=== PATIENT | male | born 1960 | race Caucasian/White ===

== ENCOUNTER 2022-08-11 08:14 | Inpatient (IN) | payer MEDICAID ==
[~2022-08-11] VITALS: Ht 180.3 cm; Wt 111.2 kg
[2022-08-11] VITALS (7 sets, daily range): BP systolic 118–183; BP diastolic 74–85
[~2022-08-11 08:14] MED LIST: ASPI-989 PO; ATOR20TA86 PO; GLIP10TA9 PO; LOSA-381 PO; METF-1185 PO; METO-408 PO; NITR0.4T50 SL; SODIUM CHLORIDE 0.9% 1,000 ML IV ONE
[2022-08-11 09:07] LABS: BASOPHILS % (AUTO) 0.4 % (0.0-2.0); EOSINOPHILS % (AUTO) 1.6 % (1.0-6.0); HEMOGLOBIN 15.5 g/dL (13.5-17.5); LYMPHOCYTES # (AUTO) 1.4 K/uL (1.0-4.8); LYMPHOCYTES % (AUTO) 21.8 % (22.0-44.0); MEAN CORPUSCULAR HEMOGLOBIN 31.5 pg (26.0-34.0); MEAN CORPUSCULAR HGB CONC 34.3 G/dL (31.0-37.0); MEAN CORPUSCULAR VOLUME 92 fL (80-100); MONOCYTES # (AUTO) 0.4 K/uL (0.1-1.0); MONOCYTES % (AUTO) 6.6 % (2.0-9.0); NEUTROPHILS # (AUTO) 4.4 K/uL (1.8-7.7); NEUTROPHILS % (AUTO) 69.6 % (40.0-70.0); PLATELET COUNT (AUTO) 172 K/uL (150-450); RED CELL DISTRIBUTION WIDTH 12.3 % (11.5-14.5)
[2022-08-11 09:17] LABS: ANION GAP 6 mmol/L (8-16); CARBON DIOXIDE 29 mmol/L (22-29); CHLORIDE 102 mmol/L (98-107); CREATININE 1.13 mg/dL (0.60-1.30); GLUCOSE,RANDOM 204 mg/dL (70-110); POTASSIUM 4.4 mmol/L (3.5-5.1); SODIUM SERUM 137 mmol/L (136-145); UREA NITROGEN, BLOOD 13 mg/dL (7-18)
[2022-08-11 09:18] LABS: GLOMERULAR FILTR. RATE CALC > 60 mL/min (>60)
[2022-08-11 09:20] LABS: PROTHROMBIN TIME 10.9 SEC (9.4-11.6)
[2022-08-11 09:24] LABS: ALANINE AMINOTRANSFERASE 39 U/L (12-78); ALBUMIN 3.8 g/dL (3.4-5.0); ALKALINE PHOSPHATASE 53 U/L (46-116); ASPARTATE AMINOTRANSFERASE 18 U/L (15-37); BILIRUBIN,TOTAL 0.6 mg/dL (0.1-1.0); TOTAL PROTEIN, SERUM 7.2 g/dL (6.4-8.2)
[2022-08-11 09:25] LABS: COVID AG,FIA SOURCE NASAL SWAB
[2022-08-11 09:55] LABS: GLUCOMETER DEV NAME(LOC) SDS.; GLUCOSE,POINT OF CARE 212 MG/DL (70-110)
[2022-08-11] MEDS ORDERED: SODIUM BICARBONATE 50 MEQ/50 ML VIAL ONE (13:07)
[2022-08-11] MEDS ORDERED: LIDOCAINE/PF 1% 30 ML VIAL ONE (13:07)
[2022-08-11] MEDS ORDERED: VERAPAMIL HCL 2.5 MG/ML 2 ML VIAL ONE (13:07)
[2022-08-11] MEDS ORDERED: IOHEXOL 300 MG/ML 50 ML VIAL ONE (13:07)
[2022-08-11] MEDS ORDERED: IOHEXOL 300 MG/ML 100 ML VIAL ONE ×2 (13:08→14:26)
[2022-08-11] MEDS ORDERED: HEPARIN SODIUM 1000 UNITS/NS 1,000 ML ONE (13:08)
[2022-08-11] MEDS ORDERED: LIDOCAINE 1% 30 ML/SOD BICARB 8.4% 4 ML SQ ONE (13:45)
[2022-08-11] MEDS ORDERED: HEPARIN SODIUM 1000 UNITS/NS 1,000 ML IARTER ONE (13:45)
[2022-08-11] MEDS ORDERED: IOHEXOL 300 MG/ML 100 ML VIAL ICOR ONE (13:45)
[2022-08-11] MEDS ORDERED: FentaNYL CITRATE PF 100 MCG/2 ML VIAL IVP ONE ×2 (13:45→14:45)
[2022-08-11] MEDS ORDERED: MIDAZOLAM HCL 2 MG/2 ML VIAL IVP ONE ×2 (13:45→14:45)
[2022-08-11] MEDS ORDERED: FentaNYL CITRATE PF 100 MCG/2 ML VIAL ONE (13:47)
[2022-08-11] MEDS ORDERED: MIDAZOLAM HCL 2 MG/2 ML VIAL ONE ×2 (13:48→14:33)
[2022-08-11] MEDS ORDERED: HEPARIN SODIUM,PORCINE 1,000 UNITS/ML 10 ML VIAL IARTER ONE ×2 (14:00→14:15)
[2022-08-11] MEDS ORDERED: VERAPAMIL HCL 2.5 MG/ML 2 ML VIAL IARTER ONE (14:15)
[2022-08-11] MEDS ORDERED: NITROGLYCERIN/D5W 50 MG/250 ML IV BOTTLE IARTER ONE (14:15)
[2022-08-11] MEDS ORDERED: NITROGLYCERIN/D5W 50 MG/250 ML IV BOTTLE ICOR ONE (15:00)
[2022-08-11] MEDS ORDERED: CLOPIDOGREL BISULFATE 300 MG TABLET ONE (15:09)
[2022-08-11] MEDS ORDERED: SODIUM CHLORIDE 0.9% 1,000 ML IV ONE (15:15)
[2022-08-11] MEDS ORDERED: DEXTROSE 50%-WATER 25 GM/50 ML SYRINGE IVP PRN (15:15)
[2022-08-11] MEDS ORDERED: CLOPIDOGREL BISULFATE 300 MG TABLET PO ONE (15:15)
[2022-08-11] MEDS ORDERED: HYDROmorphone HCL 2 MG/ML SYRINGE IVP PRN (15:15)
[2022-08-11] MEDS ORDERED: GABAPENTIN 300 MG CAPSULE PO PRN (15:15)
[2022-08-11] MEDS ORDERED: ACETAMINOPHEN 500 MG TABLET PO PRN (15:15)
[2022-08-11] MEDS ORDERED: ZOLPIDEM TARTRATE 10 MG TABLET PO PRN (15:30)
[2022-08-11] MEDS: INSULIN LISPRO 100 UNITS/ML SQ PRN ×2 (18:19→20:47)
[2022-08-12] VITALS (9 sets, daily range): BP systolic 106–136; BP diastolic 64–84
[2022-08-12] MEDS ORDERED: SODIUM CHLORIDE 0.9% 500 ML IV ONE (04:30)
[2022-08-12] MEDS: HYDROCODONE/ACETAMINOPHEN 5-325 MG TABLET PO PRN ×3 (04:30→21:32)
[2022-08-12] MEDS: ATORVASTATIN CALCIUM 20 MG TABLET PO SCH (05:49)
[2022-08-12] MEDS: INSULIN LISPRO 100 UNITS/ML SQ PRN ×4 (05:55→20:27)
[2022-08-12 06:12] LABS: BASOPHILS % (AUTO) 0.3 % (0.0-2.0); EOSINOPHILS % (AUTO) 1.8 % (1.0-6.0); HEMATOCRIT 40.5 % (41-53); HEMOGLOBIN 14.1 g/dL (13.5-17.5); LYMPHOCYTES # (AUTO) 1.6 K/uL (1.0-4.8); LYMPHOCYTES % (AUTO) 23.7 % (22.0-44.0); MEAN CORPUSCULAR HEMOGLOBIN 31.8 pg (26.0-34.0); MEAN CORPUSCULAR HGB CONC 34.8 G/dL (31.0-37.0); MEAN CORPUSCULAR VOLUME 92 fL (80-100); MONOCYTES # (AUTO) 0.5 K/uL (0.1-1.0); MONOCYTES % (AUTO) 7.7 % (2.0-9.0); NEUTROPHILS # (AUTO) 4.4 K/uL (1.8-7.7); NEUTROPHILS % (AUTO) 66.5 % (40.0-70.0); PLATELET COUNT (AUTO) 153 K/uL (150-450); RED BLOOD CELL COUNT(AUTO) 4.43 MIL/uL (4.50-5.90); RED CELL DISTRIBUTION WIDTH 12.5 % (11.5-14.5)
[2022-08-12 06:26] LABS: HEMOGLOBIN A1C 7.5 % (3.8-5.6)
[2022-08-12] MEDS ORDERED: DIAZEPAM 5 MG TABLET PO ONE (06:30)
[2022-08-12] MEDS ORDERED: DiphenhydrAMINE HCL 50 MG CAPSULE PO ONE (06:30)
[2022-08-12 06:51] LABS: GLUCOMETER DEV NAME(LOC) 5S.2B; GLUCOSE,POINT OF CARE 151 MG/DL (70-110)
[2022-08-12 06:55] LABS: ANION GAP 7 mmol/L (8-16); CALCIUM, TOTAL 8.6 mg/dL (8.8-10.5); CARBON DIOXIDE 26 mmol/L (22-29); CHLORIDE 104 mmol/L (98-107); CREATINE KINASE, TOTAL ONLY 86 U/L (39-308); CREATININE 0.96 mg/dL (0.60-1.30); GLUCOSE,RANDOM 167 mg/dL (70-110); POTASSIUM 3.9 mmol/L (3.5-5.1); SODIUM SERUM 137 mmol/L (136-145); UREA NITROGEN, BLOOD 11 mg/dL (7-18)
[2022-08-12 07:00] LABS: GLOMERULAR FILTR. RATE CALC > 60 mL/min (>60)
[2022-08-12] MEDS ORDERED: NITROGLYCERIN 50 MG/D5% WATER 250 ML ONE (07:02)
[2022-08-12] MEDS ORDERED: HEPARIN SODIUM 1000 UNITS/NS 1,000 ML ONE (07:02)
[2022-08-12] MEDS ORDERED: LIDOCAINE/PF 1% 30 ML VIAL ONE (07:02)
[2022-08-12] MEDS ORDERED: SODIUM BICARBONATE 50 MEQ/50 ML VIAL ONE (07:02)
[2022-08-12] MEDS ORDERED: IOHEXOL 300 MG/ML 100 ML VIAL ONE ×2 (07:02→09:28)
[2022-08-12] MEDS ORDERED: MIDAZOLAM HCL 2 MG/2 ML VIAL ONE ×2 (07:28→08:08)
[2022-08-12] MEDS ORDERED: FentaNYL CITRATE PF 100 MCG/2 ML VIAL ONE (07:28)
[2022-08-12] MEDS ORDERED: IOHEXOL 300 MG/ML 100 ML VIAL IARTER ONE ×3 (08:00→09:00)
[2022-08-12] MEDS ORDERED: FentaNYL CITRATE PF 100 MCG/2 ML VIAL IVP ONE ×3 (08:00→09:00)
[2022-08-12] MEDS ORDERED: LIDOCAINE 1% 30 ML/SOD BICARB 8.4% 4 ML SQ ONE (08:00)
[2022-08-12] MEDS ORDERED: MIDAZOLAM HCL 2 MG/2 ML VIAL IVP ONE ×3 (08:00→09:00)
[2022-08-12] MEDS ORDERED: HEPARIN SODIUM,PORCINE 1,000 UNITS/ML 10 ML VIAL IVP ONE ×4 (08:00→09:45)
[2022-08-12] MEDS ORDERED: HEPARIN SODIUM 1000 UNITS/NS 1,000 ML IARTER ONE (08:00)
[2022-08-12] MEDS ORDERED: NITROGLYCERIN/D5W 50 MG/250 ML IV BOTTLE ICOR ONE ×2 (08:15→09:00)
[2022-08-12] MEDS ORDERED: SODIUM CHLORIDE 0.9% 1,000 ML IV ONE (10:15)
[2022-08-12] MEDS: LOSARTAN POTASSIUM 25 MG TABLET PO SCH (11:21)
[2022-08-12] MEDS: ISOSORBIDE MONONITRATE 30 MG ER TABLET PO SCH (11:21)
[2022-08-12] MEDS: ASPIRIN 325 MG TABLET PO SCH (11:21)
[2022-08-12] MEDS: METOPROLOL SUCCINATE 25 MG ER TABLET PO SCH (11:22)
[2022-08-12] MEDS: CLOPIDOGREL BISULFATE 75 MG TABLET PO SCH (11:22)
[2022-08-12 11:51] LABS: GLUCOMETER DEV NAME(LOC) 5S.2B; GLUCOSE,POINT OF CARE 180 MG/DL (70-110)
[2022-08-13] VITALS: BP 99/61
[2022-08-13 04:00] VITALS: BP 122/78
[2022-08-13] MEDS: ATORVASTATIN CALCIUM 20 MG TABLET PO SCH (04:11)
[2022-08-13] MEDS: INSULIN LISPRO 100 UNITS/ML SQ PRN ×2 (06:19→14:14)
[2022-08-13 06:26] LABS: GLUCOMETER DEV NAME(LOC) 5S.2B; GLUCOSE,POINT OF CARE 175 MG/DL (70-110)
[2022-08-13 06:26] LABS: GLUCOMETER DEV NAME(LOC) 5S.2B; GLUCOSE,POINT OF CARE 230 MG/DL (70-110)
[2022-08-13 06:56] LABS: GLUCOMETER DEV NAME(LOC) 5N.1C; GLUCOSE,POINT OF CARE 142 MG/DL (70-110)
[2022-08-13 07:40] LABS: BASOPHILS % (AUTO) 0.3 % (0.0-2.0); EOSINOPHILS % (AUTO) 2.2 % (1.0-6.0); HEMATOCRIT 39.4 % (41-53); HEMOGLOBIN 13.3 g/dL (13.5-17.5); LYMPHOCYTES # (AUTO) 1.7 K/uL (1.0-4.8); LYMPHOCYTES % (AUTO) 21.1 % (22.0-44.0); MEAN CORPUSCULAR HEMOGLOBIN 31.2 pg (26.0-34.0); MEAN CORPUSCULAR HGB CONC 33.8 G/dL (31.0-37.0); MEAN CORPUSCULAR VOLUME 92 fL (80-100); MONOCYTES # (AUTO) 0.7 K/uL (0.1-1.0); MONOCYTES % (AUTO) 8.3 % (2.0-9.0); NEUTROPHILS # (AUTO) 5.4 K/uL (1.8-7.7); NEUTROPHILS % (AUTO) 68.1 % (40.0-70.0); PLATELET COUNT (AUTO) 148 K/uL (150-450); RED BLOOD CELL COUNT(AUTO) 4.26 MIL/uL (4.50-5.90); RED CELL DISTRIBUTION WIDTH 12.6 % (11.5-14.5)
[2022-08-13 08:00] VITALS: BP 117/69
[2022-08-13 08:19] LABS: ANION GAP 7 mmol/L (8-16); CALCIUM, TOTAL 8.4 mg/dL (8.8-10.5); CARBON DIOXIDE 26 mmol/L (22-29); CHLORIDE 104 mmol/L (98-107); CHOL/HDL RATIO 4.7 (4.2-7.3); CHOLESTEROL 112 mg/dL (131-200); CREATINE KINASE, TOTAL ONLY 75 U/L (39-308); CREATININE 0.93 mg/dL (0.60-1.30); GLOMERULAR FILTR. RATE CALC > 60 mL/min (>60); GLUCOSE,RANDOM 163 mg/dL (70-110); HDL CHOLESTEROL 24 mg/dL (40-60); LDL CHOL (CALC.) 51 mg/dL (0-130); POTASSIUM 3.8 mmol/L (3.5-5.1); SODIUM SERUM 137 mmol/L (136-145); TRIGLYCERIDES 183 mg/dL (15-150); UREA NITROGEN, BLOOD 10 mg/dL (7-18)
[2022-08-13] MEDS: CLOPIDOGREL BISULFATE 75 MG TABLET PO SCH (10:20)
[2022-08-13] MEDS: ASPIRIN 325 MG TABLET PO SCH (10:20)
[2022-08-13] MEDS: ISOSORBIDE MONONITRATE 30 MG ER TABLET PO SCH (10:20)
[2022-08-13] MEDS: LOSARTAN POTASSIUM 25 MG TABLET PO SCH (10:21)
[2022-08-13] MEDS: METOPROLOL SUCCINATE 25 MG ER TABLET PO SCH (10:21)
[2022-08-13] MEDS ORDERED: CLOP75TA60 PO (14:34)
[2022-08-13 22:51] LABS: GLUCOMETER DEV NAME(LOC) 5N.1C; GLUCOSE,POINT OF CARE 202 MG/DL (70-110)
== END 2022-08-13 15:45 | disposition home or self-care (01) | DRG 175 ==
LOC: CATHLAB 08:14 → 5S 08:15 → UNDOADMIN 17:00 → 5S 17:00
PROVIDERS: ADMIT Internal Medicine Cardiovascular Disease; ATTEND Internal Medicine Cardiovascular Disease
PROC: 4A023N7 Measurement of Cardiac Sampling and Pressure, Left Heart, Percutaneous Approach (ICD-10-PCS; principal; 2022-08-11)
PROC: 027034Z Dilation of Coronary Artery, One Artery with Drug-eluting Intraluminal Device, Percutaneous Approach (ICD-10-PCS; 2022-08-11)
PROC: B2111ZZ Fluoroscopy of Multiple Coronary Arteries using Low Osmolar Contrast (ICD-10-PCS; 2022-08-11)
PROC: B2151ZZ Fluoroscopy of Left Heart using Low Osmolar Contrast (ICD-10-PCS; 2022-08-11)
PROC: 02C03Z7 Extirpation of Matter from Coronary Artery, One Artery, Orbital Atherectomy Technique, Percutaneous Approach (ICD-10-PCS; 2022-08-12)
PROC: 027137Z Dilation of Coronary Artery, Two Arteries with Four or More Drug-eluting Intraluminal Devices, Percutaneous Approach (ICD-10-PCS; 2022-08-12)
DX: I25.10 Atherosclerotic heart disease of native coronary artery without angina pectoris (principal); I25.82 Chronic total occlusion of coronary artery; Z20.822 Contact with and (suspected) exposure to COVID-19; Z79.899 Other long term (current) drug therapy; Z79.4 Long term (current) use of insulin; Z79.82 Long term (current) use of aspirin
CPT/HCPCS: 37229; 80048; 80053; 80061; 82550; 82962; 83036; 85025; 85610; 85730; 92920; 92928; 93005; C1724; J1644; J2250; J3010; J3490; J7030; J7040; Q9967; 36415-L1; 36415-TC; C9803; Z7610